=== PATIENT | female | born 1990 | race African-American/Black ===

== ENCOUNTER 2018-12-19 11:10 | Emergency (ER) | payer OTHER ==
[2018-12-19 12:32] LABS: BASOPHILS # (AUTO) 0.1 10^3/uL (0.0-0.1); BASOPHILS % (AUTO) 0.9 %; EOSINOPHILS # (AUTO) 0.1 10^3/uL (0.0-0.7); EOSINOPHILS % (AUTO) 0.7 %; HGB - HEMOGLOBIN 13.1 g/dL (12.0-16.0); LYMPHOCYTES # (AUTO) 2.3 10^3/uL (1.5-3.5); LYMPHOCYTES % (AUTO) 33.6 %; MEAN CORPUSCULAR HEMOGLOBIN 29.9 pg (27.0-31.0); MEAN CORPUSCULAR HGB CONC 31.7 g/dL (32.0-36.0); MEAN CORPUSCULAR VOLUME 94.3 fL (81.0-99.0); MEAN PLATELET VOLUME 9.4 fL (7.9-10.8); MONOCYTES # (AUTO) 0.6 10^3/uL (0.0-1.0); MONOCYTES % (AUTO) 8.5 %; NEUTROPHILS # (AUTO) 3.8 10^3/uL (1.5-6.6); NEUTROPHILS % (AUTO) 55.7 %; PLT - PLATELET COUNT 387 10^3/uL (130-450); RED BLOOD COUNT 4.38 10^6/uL (4.20-5.40); WHITE BLOOD COUNT 6.8 x10^3/uL (4.8-10.8)
[2018-12-19 12:58] LABS: ALBUMIN/GLOBULIN RATIO 0.9 (1.0-2.2); BILIRUBIN,TOTAL 0.6 mg/dL (0.2-1.0); CALCIUM 9.6 mg/dL (8.5-10.3); CREATININE 0.7 mg/dL (0.4-1.0); TOTAL PROTEIN 8.4 g/dL (6.7-8.2)
[2018-12-19 14:53] LABS: BILIRUBIN,URINE NEGATIVE (NEGATIVE); GLUCOSE, URINE (UA) NEGATIVE (NEGATIVE); KETONES,URINE (UA) NEGATIVE (NEGATIVE); LEUKOCYTE ESTERASE, URINE NEGATIVE (NEGATIVE); NITRITE,URINE NEGATIVE (NEGATIVE); OCCULT BLOOD,URINE NEGATIVE (NEGATIVE); PROTEIN,URINE NEGATIVE (NEGATIVE); UROBILINOGEN,URINE 0.2 (NORMAL) E.U./dL (NORMAL)
[2018-12-19 14:54] LABS: CLARITY,URINE CLEAR (CLEAR); HCG UR QUAL NEGATIVE
[2018-12-19 15:11] VITALS: BP 130/71
[2018-12-19] MEDS ORDERED: ONDANSETRON ODT 4 MG TABLET TL STA (15:28)
--- NOTE | 2018-12-19 15:28 | ED Physician Documentation ---
History of Present Illness - Stated complaint Stated Complaint: N/V - Chief complaint Chief Complaint: Abd Pain - Additonal information Additional information: This is a 28-year-old female who denies past medical history who presents with vomiting and diarrhea. Patient states that her symptoms began yesterday, She initially had multiple episodes of loose, nonbloody diarrhea, as well as vomiting, today she has had a predominance of the vomiting. The vomiting is nonbloody non-bilious. She has not been able to hold down food, she has been able to take sips of water. She has some Intermittent abdominal cramping which migrates around her abdomen, no specific focal consistent pain. She denies dysuria, no measured fever. Review of Systems Constitutional: denies: Fever Cardiac: denies: Chest pain / pressure GI: reports: Vomiting Skin: denies: Rash PD PAST MEDICAL HISTORY - Past Medical History Past Medical History: No GI: Hemorrhoids - Present Medications Home Medications: Ambulatory Orders Medication Instructions Recorded Confirmed Ondansetron Odt [Zofran] 4 mg TL Q6H PRN #8 tablet 12/19/18 - Allergies Allergies/Adverse Reactions: Allergies Allergy/AdvReac Type Severity Reaction Status Date / Time No Known Drug Allergies Allergy Verified 12/19/18 11:15 - Social History Does the pt have substance abuse?: No - Family History Family history: reports: Non contributory - Immunizations Immunizations are current?: Yes PD ED PE NORMAL - Vitals Vital signs reviewed: Yes - General General: Alert and oriented X 3, No acute distress - HEENT HEENT: PERRL - Neck Neck: Supple, no meningeal sign - Cardiac Cardiac: RRR - Respiratory Respiratory: Clear bilaterally - Abdomen Abdomen: Soft, Non tender, Non distended - Derm Derm: Warm and dry - Extremities Extremities: No deformity - Neuro Neuro: Alert and oriented X 3 - Psych Psych: Normal mood, Normal affect Results - Vitals Vitals: Vital Signs - 24 hr 12/19/18 12/19/18 12/19/18 11:15 13:15 15:10 Temperature 36.9 C 36.9 C Heart Rate 80 81 83 Respiratory 15 16 18 Rate Blood Pressure 132/79 H 116/71 130/71 O2 Saturation 100 100 100 Oxygen O2 Source Room air - Labs Labs: Laboratory Tests 12/19/18 12/19/18 12/19/18 11:30 12:05 12:05 WBC 6.8 RBC 4.38 Hgb 13.1 Hct 41.3 MCV 94.3 MCH 29.9 MCHC 31.7 L RDW 13.0 Plt Count 387 MPV 9.4 Neut # (Auto) 3.8 Lymph # (Auto) 2.3 Payette # (Auto) 0.6 Eos # (Auto) 0.1 Baso # (Auto) 0.1 Absolute Nucleated RBC 0.00 Nucleated RBC % 0.0 Sodium 138 Potassium 4.0 Chloride 104 Carbon Dioxide 28 Anion Gap 6.0 BUN 11 Creatinine 0.7 Estimated GFR (MDRD) 122 Glucose 94 Calcium 9.6 Total Bilirubin 0.6 AST 25 ALT 24 Alkaline Phosphatase 67 Total Protein 8.4 H Albumin 4.0 Globulin 4.3 H Albumin/Globulin Ratio 0.9 L Lipase 30 Urine Color YELLOW Urine Clarity CLEAR Urine pH 6.0 Ur Specific Jeannette >=1.030 H Urine Protein NEGATIVE Urine Glucose (UA) NEGATIVE Urine Ketones NEGATIVE Urine Occult Blood NEGATIVE Urine Nitrite NEGATIVE Urine Bilirubin NEGATIVE Urine Urobilinogen 0.2 (NORMAL) Ur Leukocyte Esterase NEGATIVE Ur Microscopic Review NOT INDICATED Urine Culture Comments NOT INDICATED Urine HCG, Qual NEGATIVE PD MEDICAL DECISION MAKING - ED course Complexity details: considered differential (Gastroenteritis, appendicitis, gastritis, pancreatitis, urinary tract infection, STI.) ED course: Patient has a benign abdominal exam, unremarkabnle CBC and abdominal panel. UA negative for infection, HCG negative. Her history is most consistent with gastroenteritis. After zofran she is tolerating PO without vomiting and continues to have a benign exam without signs of acute abdominal pathology. Supportive care and return precautions discussed including signs of appendicitis, and patient was discharged home with zofran. Departure - Departure Disposition: 01 Home, Self Care Clinical Impression: Gastroenteritis Condition: Good Follow-Up: Jenny Pringle MD [Primary Care Provider] - Prescriptions: Ondansetron Odt [Zofran] 4 mg TL Q6H PRN #8 tablet PRN Reason: Nausea / Vomiting Comments: You were seen today for vomiting, diarrhea, and some abdominal pain. This appears to be a gastroenteritis/stomach bug. You may take the Zofran for the nausea, Tylenol for pain. If you develop worsening abdominal pain, persistent vomiting, or pain that localizes to your right lower abdomen or right upper abdomen, return to the emergency department. Otherwise please follow-up with your primary care provider. Discharge Date/Time: 12/19/18 16:28
[2018-12-19] MEDS ORDERED: ONDANSETRON ODT 4 MG Prepack 2 TL PRN (16:09)
== END 2018-12-19 16:28 | disposition home or self-care (01) ==
LOC: ED 11:10
DX: K52.9 Noninfective gastroenteritis and colitis, unspecified (principal)
CPT/HCPCS: 36415; 80053; 81003; 81025; 83690; 85025; 99283; Q0162; 81001; 87086

== ENCOUNTER 2020-03-04 17:21 | Emergency (ER) | payer OTHER ==
[2020-03-04 17:26] VITALS: BP 133/83
--- NOTE | 2020-03-04 18:00 | ED Physician Documentation ---
History of Present Illness - Stated complaint Stated Complaint: TOE INJ - Chief complaint Chief Complaint: Ext Problem - History obtained from History obtained from: Patient - History of Present Illness Timing: Today - Additonal information Additional information: 29-year-old female presents to the emergency department after injuring her left second toe about a week ago. She said she was performing a dance exercise class and landed on her toe. Has had pain since the incident. Worse with walking, better with rest. Review of Systems Constitutional: denies: Fever, Chills : denies: Now [facility] PAST MEDICAL HISTORY - Past Medical History Past Medical History: Yes GI: Hemorrhoids - Present Medications Home Medications: Ambulatory Orders Medication Instructions Recorded Confirmed No Known Home Medications 03/04/20 03/04/20 - Allergies Allergies/Adverse Reactions: Allergies Allergy/AdvReac Type Severity Reaction Status Date / Time No Known Drug Allergies Allergy Verified 03/04/20 17:22 - Social History Does the pt smoke?: No Smoking Status: Never smoker Does the pt have substance abuse?: No - Immunizations Immunizations are current?: Yes PD ED PE NORMAL - Vitals Vital signs reviewed: Yes - General General: Alert and oriented X 3, No acute distress - HEENT HEENT: Moist mucous membranes - Derm Derm: Warm and dry - Extremities Extremities: Other (Tender to palpation on the plantar aspect of the left second toe, proximal phalanx. No swelling. No bruising. Full range of motion of the toe including motion against resistance. Neurovascularly intact. Otherwise normal exam of the foot) - Neuro Neuro: Alert and oriented X 3 - Psych Psych: Normal mood, Normal affect Results - Vitals Vitals: Vital Signs - 24 hr 03/04/20 17:22 Temperature 37.0 C Heart Rate 90 Respiratory 19 Rate Blood Pressure 133/83 H O2 Saturation 99 Oxygen O2 Source Room air - Rads (name of study) Left foot x-ray Radiology: Prelim report reviewed, EMP read contemporaneously, See rad report (No acute abnormality) PD MEDICAL DECISION MAKING - ED course Complexity details: reviewed results, re-evaluated patient, considered differential, d/w patient ED course: 29-year-old female with a left second toe sprain. No acute findings on x-ray. Ambulating well. We will continue supportive care and have her follow-up with her doctor. Patient counseled regarding signs and symptoms for which I believe and urgent re-evaluation would be necessary. Patient with good understanding of and agreement to plan and is comfortable going home at this time This document was made in part using voice recognition software. While efforts are made to proofread this document, sound alike and grammatical errors may occur. Departure - Departure Disposition: 01 Home, Self Care Clinical Impression: Sprain of toe, second, left Qualifiers: Encounter type: initial encounter Qualified Code(s): S93.505A - Unspecified sprain of left lesser toe(s), initial encounter Condition: Good Instructions: ED Sprain Toe Follow-Up: CARLOS Galvan [Provider Group] - Within 1 week Comments: Your x-rays are normal today. Follow-up with your doctor in 1 week for repeat evaluation. They may consider repeat imaging if you are still having pain. Discharge Date/Time: 03/04/20 18:32
--- NOTE | 2020-03-04 18:26 | XRAY Report ---
PROCEDURE: Toe(s) LT INDICATIONS: L 2nd toe injury TECHNIQUE: AP view of the foot and 2 views of the left second toe. COMPARISON: None. FINDINGS: Bones: No acute fractures or dislocations. No suspicious bony lesions. Soft tissues: No suspicious soft tissue densities. IMPRESSION: No acute osseous abnormality. If there is clinical concern or persistent symptoms, further evaluation with repeat radiographs or advanced imaging (e.g. CT, MRI) may be obtained for further evaluation. Reviewed by: Shoaib Shin MD on 03/04/2020 6:24 PM PST Approved by: Shoaib Shin MD on 03/04/2020 6:24 PM PST Station ID: [id number]
== END 2020-03-04 18:32 | disposition home or self-care (01) ==
LOC: ED 17:21
DX: S93.505A Unspecified sprain of left lesser toe(s), initial encounter (principal); W18.39XA Other fall on same level, initial encounter; Y93.A3 Activity, aerobic and step exercise
CPT/HCPCS: 99283; 99284